=== PATIENT | female | born 1970 | race Caucasian/White ===

== ENCOUNTER → 2020-03-07 10:39 | Outpatient (BNVA) | payer OTHER, SELFPAY | PROVIDERS: Family Provider Obstetrics & Gynecology; Visit Provider Emergency Medicine | DX: Z20.828 Contact with and (suspected) exposure to other viral communicable diseases (principal) | CPT/HCPCS: 87635 ==

== ENCOUNTER → 2023-04-18 10:35 | Outpatient (BNVA) | payer OTHER, SELFPAY | PROVIDERS: Family Provider Obstetrics & Gynecology; Visit Provider Orthopaedic Surgery | DX: T14.8XXA Other injury of unspecified body region, initial encounter; X58.XXXA Exposure to other specified factors, initial encounter | CPT/HCPCS: 73060 ==

== ENCOUNTER 2023-04-21 06:40 | Outpatient (CLI) | payer OTHER, SELFPAY ==
--- NOTE | 2023-04-21 07:00 | CT_ITS ---
WS: [id number] CT LEFT SHOULDER, NONCONTRAST HISTORY: shoulder pain, fracture after fall. Technique: All CT scans at [facility] use at least one of these dose optimization techniques: automated exposure control; mA and/or kV adjustment per patient size (includes targeted exams where dose is matched to clinical indication); or iterative reconstruction. DLP: 846.43 mGy.cm COMPARISON: Radiographs 04/18/2023 and 04/16/2023 Markedly comminuted fracture involving the LEFT humeral head and neck. Intra-articular fracture at ltiple sites. The fracture extends through the humeral neck. There is impaction of the distal fractur e into the humeral head and significant subluxation inferiorly of the humeral head with respect to th e glenoid. Small joint effusion is identified. The distal fracture is displaced anteriorly. AC joint appears normal. No glenoid fracture. No rib fracture. IMPRESSION: 1. Markedly comminuted, displaced intra-articular LEFT humeral head and neck fracture. 2. Inferior subluxation of the humeral head with respect to the glenoid. 3. Small joint effusion.
== END 2023-04-21 06:41 | disposition home or self-care (01) ==
LOC: RAD 06:40
PROVIDERS: Family Provider Obstetrics & Gynecology; Visit Provider Orthopaedic Surgery
DX: S42.352A Displaced comminuted fracture of shaft of humerus, left arm, initial encounter for closed fracture (principal); S42.212A Unspecified displaced fracture of surgical neck of left humerus, initial encounter for closed fracture; W19.XXXA Unspecified fall, initial encounter
CPT/HCPCS: 73200

== ENCOUNTER 2024-04-19 12:13 | Outpatient (CLI) | payer OTHER, SELFPAY ==
--- NOTE | 2024-04-19 12:17 | US_ITS ---
WS: [id number] ULTRASOUND-GUIDED LEFT BREAST BIOPSY HISTORY: ABNORMAL MAMMO COMPARISON: 04/04/2024 mammogram and ultrasound. Procedure, risks and complications are explained to the patient. Medications are reviewed. Consent is obtained. The mass in the LEFT breast is localized with ultrasound. Spiculated irregular mass identified at 2:00, 2 cm from the nipple. Skin is cleansed with ChloraPrep and anesthetized with 1% buffered lidocaine. Small dermatome is made. Under sterile conditions mass is biopsied with a 14-gauge Achieve needle. Multiple core biopsies are performed. Material placed in formalin and sent to pathology for review. No complications encountered. Breast tissue marker (Adaptive Digital Power ultrasound enhanced ribbon): Single. Patient left the radiology suite with no complications. [place] [facility] [place] call with any concerns. US/[place] [id number] IMPRESSION: 1. Uncomplicated core needle biopsy LEFT breast mass at 2:00. 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 Greatest tumor dimension 15 mm. Please refer to the pathology report for further details. RECOMMENDATION: Follow-up with oncology and breast surgeon.
[2024-04-25 15:17] LABS: Breast Profile ER,PR,HER2,Ki-6 See Report
== END 2024-04-19 12:14 | disposition home or self-care (01) ==
LOC: RAD 12:15
PROVIDERS: Family Provider Obstetrics & Gynecology; PCP Nurse Practitioner Family; Visit Provider Nurse Practitioner Family
DX: R92.8 Other abnormal and inconclusive findings on diagnostic imaging of breast (principal); C50.412 Malignant neoplasm of upper-outer quadrant of left female breast; R92.0 Mammographic microcalcification found on diagnostic imaging of breast
CPT/HCPCS: 19083; 88305; 88361; 88374

== ENCOUNTER 2024-05-01 09:46 | Oncology outpatient (recurring) (ONCR) | payer OTHER, SELFPAY ==
[2024-05-01 11:22] LABS: Basophils # 0.1 10^3/uL (0.0-0.1); Basophils % 0.7 %; Eosinophils # 0.1 10^3/uL (0.0-0.8); Eosinophils % 1.2 %; Hematocrit 43.9 % (36-47); Lymphocytes # 1.9 10^3/uL (0.8-4.8); Lymphocytes % 27.6 %; Mean Corpuscular HGB Conc 33.7 g/dL (30-55); Mean Corpuscular Hemoglobin 28.1 pg (27-33); Mean Corpuscular Volume 83.5 fl (85-98); Mean Platelet Volume 10.3 fL (7.4-10.4); Monocytes # 0.4 10^3/uL (0.2-0.9); Monocytes % 5.5 %; Neutrophils # 4.46 10^3/uL (1.8-7.7); Neutrophils % 64.9 %; Nucleated Red Blood Cells % 0 %; Platelet Count 301 10^3/cmm (157-399); Red Blood Count 5.26 10^6/uL (3.85-5.65); Red Cell Distribution Width 12.5 % (12.1-15.1); White Blood Count 6.88 10^3/uL (3.29-11.43)
[2024-05-01 11:35] LABS: Miscellaneous Test See Scanned Lab Rpt
[2024-05-01 11:39] LABS: Erythrocyte Sedimentation Rate 12 mm/hr (0-15)
[2024-05-01 11:53] LABS: Alanine Aminotransferase 29 U/L (0-33); Albumin Level 4.7 g/dL (3.5-5.2); Alkaline Phosphatase 65 U/L (35-105); Anion Gap 15.5 (5-19); Aspartate Amino Transferase 19 U/L (0-32); Blood Urea Nitrogen 12 mg/dL (6-20); CA 15-3 22.9 U/mL (0-25); Calcium 9.8 mg/dL (8.5-10.5); Carbon Dioxide 24 mmol/L (22-29); Chloride 105 mmol/L (98-107); Follicle Stimulating Hormone 54.5 mIU/mL; Globulin 2.7 g/dL (1.3-4.6); Glomerular Filtration Rate 75.3 mL/min (90-130); Glucose 112 mg/dL (65-115); Lactate Dehydrogenase 203 U/L (135-214); Luteinizing Hormone 26.5 mIU/mL (0.5-41.7); Osmolality Calculated 291 mOsm/kg (285-295); Potassium 4.5 mmol/L (3.5-5.1); Sodium 140 mmol/L (136-145); Total Bilirubin 0.5 mg/dL (0.15-1.2); Total Protein 7.4 g/dL (6.6-8.7)
== END 2024-05-06 23:59 | disposition home or self-care (01) ==
PROVIDERS: Family Provider Obstetrics & Gynecology; PCP Nurse Practitioner Family; Visit Provider Internal Medicine
DX: C50.919 Malignant neoplasm of unspecified site of unspecified female breast (principal)
CPT/HCPCS: 36415; 80053; 82670; 83001; 83002; 83615; 85025; 85651; 86300

== ENCOUNTER 2024-05-06 07:10 | Day surgery (SDC) | payer OTHER, SELFPAY ==
[2024-05-06] VITALS (10 sets, daily range): BP systolic 101–140; BP diastolic 67–92; PULSE 91–108; RESP 14–21; TEMP 36.1–36.4; O2SAT 97–100; BMI 38.0
[2024-05-06] MEDS: sodium chloride 0.9% 1,000 ML 30 ML IV (07:37)
--- NOTE | 2024-05-06 08:34 | ANES.PREANE2 ---
Pre-Anesthetic Assessment Height/Weight: Height 1.57 m Weight 94.347 kg Temp Pulse Resp BP Pulse Ox O2 Del Method 97.3 F L 98 18 114/87 98 Room Air 05/06/24 07:26 05/06/24 07:26 05/06/24 07:26 05/06/24 07:26 05/06/24 07:26 05/06/24 07:26 Operation Date: 05/06/24 09:10 Proposed Procedures p Portacath Placement 43560, C50.412(Not Applicable) - Collins Hernandez MD Familial anesthetic complications: None Was Beta Karl taken within 24 hours: N/A Was Clonidine taken within 24 hours: N/A Last intake: Intake Last Liquid Date 05/05/24 Last Liquid Time 19:00 Last Solid Date 05/05/24 Last Solid Time 19:00 Social No alcohol and No tobacco Exam alert, oriented x 3, clear to auscultation bilaterally and regular rate & rhythm Airway Mallampati: Class III Dentition: other (missing) Metabolic Morbid Obesity Anesthetic Plan ASA status: 2 Anesthesia: MAC Risk of > 500 ml blood loss (7ml/kg in children): No Medications/Allergies Home Medications ?Medication ?Instructions ?Recorded ?Confirmed ?Last Taken ?Type norethindrone (contraceptive) 0.35 0.35 mg PO DAILY 05/01/24 05/03/24 05/05/24 20:00 History mg tablet (Magalis) Allergies Allergy/AdvReac Type Severity Reaction Status Date / Time amoxicillin Allergy hives Verified 05/06/24 07:23 Current Medications Generic Name Dose Route Start Last Admin Trade Name Elida PRN Reason Stop Dose Admin Sodium Chloride 1,000 mls @ 30 mls/hr 05/06/24 07:30 05/06/24 07:37 Sodium Chloride 0.9% IV 05/07/24 07:29 30 mls/hr .Q24H JOE Administration PFSH Anesthesia Social History Smoking and tobacco/nicotine status: never used tobacco/nicotine Second hand smoke exposure: Yes (during childhood) Data Anesthesia Cardiac Studies: No Data to Display
--- NOTE | 2024-05-06 09:45 | P.HPUD_ITS ---
Surgery/Procedure H&P Update DATE OF PROCEDURE: May 06, 2024 DATE H&P PERFORMED: 05/02/24 H&P UPDATE INFORMATION: I have reviewed H&P completed within last 30 days, I have examined patient prior to procedure, No changes to prior documentation, H&P is in [facility] EMR on date indicated and Risks and benefits of the procedure reviewed PLANNED PROCEDURE: Operation Date: 05/06/24 09:10 Proposed Procedures p Portacath Placement [id number], C50.412(Not Applicable) - Collins Hernandez MD
[2024-05-06] MEDS: clindamycin 600 MG/50 ML PREMIX IV (10:22)
--- NOTE | 2024-05-06 10:38 | SC_ITS ---
WS: [id number] C-arm FL for CVA [id number] REASON FOR EXAM: MEEK CATH FINDINGS: Chemotherapy infusion port of the right chest with right internal jugular vein infusion catheter with the tip in the distal SVC. No pneumothorax. SC/C-arm FL for CVA [id number] IMPRESSION: Right chemotherapy infusion port and catheter placement as above.
[2024-05-06] MEDS: heparin, porcine 1,000 unit/mL INJ 10 mL 10000 UNIT IRRIGATION (10:50)
[2024-05-06] MEDS: lidocaine-epi 1% 20 mL INJ INJECTION (10:50)
--- NOTE | 2024-05-06 10:57 | XR_ITS ---
WS: [id number] XR chest 1V portable [id number] REASON FOR EXAM: PORTACATH FINDINGS: Right chest chemotherapy infusion port. Right internal jugular infusion catheter with the tip in the distal SVC at the cavoatrial junction. No acute pulmonary parenchymal or pleural abnormality. XR/XR chest 1V portable [id number] IMPRESSION: Right chest chemotherapy infusion port and catheter without abnormality.
--- NOTE | 2024-05-06 11:20 | PM.OP ---
Operative Report Date of procedure: May 06, 2024 Pre-op diagnosis: HER2 positive breast cancer Post-op diagnosis: Same Post-op findings: Normal vascular anatomy of the right neck Procedure done: Insertion of right IJ Port-A-Cath Implants: Bard Port-A-Cath Specimens removed/disposition: None Surgeon: Collins Hernandez MD Sales Promotion Manager: DAYANARA OR Staff Estimated blood loss: 10 Complications: none apparent Brief History: 53-year-old female with breast cancer who presents to my office for evaluation, we have determined the patient would benefit from neoadjuvant therapy. She is here for a port. Procedure: Patient was brought into the OR, she was placed in a supine position, moderate anesthesia sedation was given. Timeout was conducted after the skin was prepped and draped in the usual sterile fashion. I then proceeded to identify the right IJ vein with ultrasound, I infiltrated local anesthesia on top of the vein. I then proceeded to cannulate the vein under direct ultrasound guidance using an 18-gauge needle, the needle tip was seen entering the vein and immediate return of blood was noted. wire advancement was unsuccessful. an dditional cannulation attempt was needed. A wire was advanced through the needle and the needle was removed. The position of the wire was verified with ultrasound and fluoroscopy. The wire was then fixed to the drapes. I then placed my attention to the chest, local anesthesia was infiltrated in the previously marked area on the chest and then a tract connecting the chest to the wire insertion site in the neck. I then proceeded to make a 3.5 cm incision in the right upper chest, the incision was deepened to subcutaneous tissue with electrocautery and electrocautery was used to create the subcutaneous pocket to house the Port-A-Cath. I then proceeded to use a hemostat to create a tunnel from the chest wound to the neck. I then proceeded to make a 0.5 cm incision at the level of the wire insertion site in the neck. Hemostasis was verified. I then placed the Port-A-Cath in the pocket and tunneled the catheter using the provided tunneler. The catheter was cut to appropriate length under fluoroscopy guidance and then flushed. I then proceeded to insert an introducer with a peel-off sheath over the wire under direct fluoroscopic guidance. I then remove the wire and the introducer leaving the peel-off sheath in place. The catheter was then advanced through the peel-off sheath and the peel-off sheath was removed leaving the catheter in place. Fluoroscopy showed evidence of Adequate catheter position. I then proceeded to access the port; the port was retrieving blood and flushing fine, I then hep-locked the catheter. Hemostasis was verified. The wound was closed in layers using #3-0 Vicryl for the subcutaneous tissue and #4 Monocryl for the skin. Dermabond was applied. At the end of the procedure all counts were correct. The patient tolerated well the procedure and was transferred to the PACU in stable condition.
--- NOTE | 2024-05-06 12:45 | ANE.PACU2 ---
Inpatient post-anesthesia follow up: Airway intact: Yes Vital signs: Temperature 97.0 F Pulse Rate 91 Respiratory Rate 17 Blood Pressure 133/90 Pulse Oximetry 99 Oxygen Delivery Me thod Room Air Oxygen Flow Rate 2 Fraction of Inspir ed Oxygen Hydration adequate: Yes Nausea and vomiting: No Pain level: 1 Mental status: Baseline
== END 2024-05-06 12:47 | disposition home or self-care (01) ==
PROVIDERS: PCP Nurse Practitioner Family; Visit Provider Surgery
PROC: (CPT 36561; principal; 2024-05-06 09:00)
DX: C50.412 Malignant neoplasm of upper-outer quadrant of left female breast (principal); E66.01 Morbid (severe) obesity due to excess calories; Z68.38 Body mass index [BMI] 38.0-38.9, adult; Z88.0 Allergy status to penicillin; Z17.1 Estrogen receptor negative status [ER-]
CPT/HCPCS: 36561; 71045; 76000; 77001; C1788; J1644; J2250; J2704; J3490; J7030; J9999

== ENCOUNTER 2024-06-05 08:00 | Oncology outpatient (recurring) (ONCR) | payer OTHER, SELFPAY ==
--- NOTE | 2024-05-09 10:00 | USCV_ITS ---
Tanya Richter Age: 53 Gender: F : 1970 Exam Date: 05/09/2024 09:33 Ordering Phys: Yousif Enriquez MD Technologist: Exam [place] [facility] [place] Indication: pre high risk meds BP: 112 / 78 HR: 88 Rhythm: Sinus Technical Quality: Adequate MEASUREMENTS (Male / Female) Normal Values 2D ECHO LV Diastolic Diameter PLAX 3.5 cm 4.2 - 5.9 / 3.9 - 5.3 cm IVS Diastolic Thickness 1.1 cm 0.6 - 1.0 / 0.6 - 0.9 cm IVS Systolic Thickness 1.5 cm LVPW Diastolic Thickness 1.3 cm 0.6 - 1.0 / 0.6 - 0.9 cm LVPW Systolic Thickness 1.3 cm LVOT Diameter 2.0 cm LV Ejection Fraction 2D Teich 71.3 % LV Ejection Fraction MOD 4C 55.2 % LV Ejection Fraction MOD 2C 72.9 % LV Ejection Fraction 2C AL 73.3 % LA Diameter 3.2 cm RA Systolic Volume 4C AL 19.5 ml RA Systolic Volume 4C MOD 18.3 ml LA Sys Volume AL 26.6 cm cubed LA Sys Volume Index AL 12.8 cm cubed/m squared Aorta at Sinotubular Diameter 2.7 cm IVC Diameter 2.0 cm M-MODE LA Ao Ratio MM 1.1 AV Cusp Separation MM 2.3 cm DOPPLER AV Peak Velocity 118.0 cm/s LVOT Peak Velocity 91.0 cm/s AV Area Cont Eq vti 3.1 cm squared AV Area Cont Eq pk 2.5 cm squared MV Peak Velocity 95.0 cm/s MV Area PHT 7.4 cm squared Mitral E to A Ratio 0.8 TV Peak Velocity 153.0 cm/s TR Peak Velocity 157.0 cm/s TR Peak Gradient 9.9 mmHg TV Peak E Velocity 95.0 cm/s PV Peak Velocity 91.0 cm/s FINDINGS Left Ventricle Normal left ventricular size, systolic function and wall thickness, with no regional wall motion abnormalities. Left ventricular ejection fraction is estimated at 65 %. Grade I/IV diastolic dysfunction (abnormal relaxation filling pattern), normal to mildly elevated filling pressures. Right Ventricle The right ventricle is normal in size and function. Right Atrium The right atrium is normal in size. Left Atrium The left atrium is normal in size. Mitral Valve Moderately thickened mitral valve. Moderate mitral annular calcification. No mitral valve stenosis. Mild mitral valve regurgitation. Aortic Valve Moderate aortic valve calcification. No aortic valve stenosis. Trace aortic valve regurgitation. Tricuspid Valve Structurally normal tricuspid valve without significant stenosis or regurgitation. Pulmonary artery systolic pressure is normal. Pulmonic Valve Structurally normal pulmonic valve without significant stenosis. There is no pulmonic regurgitation. Pericardium Normal pericardium without effusion. Aorta Normal ascending aorta dimension. IVC The inferior vena cava appears normal. CONCLUSIONS Normal left ventricular size, systolic function and wall thickness, with no regional wall motion abnormalities. Left ventricular ejection fraction is estimated at 65 %. Grade I/IV diastolic dysfunction (abnormal relaxation filling pattern), normal to mildly elevated filling pressures. Moderately thickened mitral valve. Moderate mitral annular calcification. No mitral valve stenosis. Mild mitral valve regurgitation. Moderate aortic valve calcification. No aortic valve stenosis. Trace aortic valve regurgitation. There is no pericardial effusion. Right atrial pressure is around 5 mm of mercury. Nikky Nix MD (Electronically Signed) Final Date: 23 May 2024 12:40 S
--- NOTE | 2024-05-24 08:00 | PETR_ITS ---
PROCEDURE INFORMATION: Exam: PET/CT Skull Base to Mid-thigh Exam date and time: 05/24/2024 10:16 AM Age: 53 years old Clinical indication: Condition or disease; Primary cancer: Breast cancer; Prior surgery; Surgery date: 6+ months; Surgery type: Port LABS AND CLINICAL REPORTS: Glucose: 101 mg/dl Treatment strategy for malignancy (PET staging): Initial Staging (PI) TECHNIQUE: Imaging protocol: Following at least four-hour fasting and following the injection of radiopharmaceutical, low dose CT images were obtained. Then, PET images were obtained. Attenuation corrected images were constructed using the CT scan. Fused images of PET and CT were reviewed. The standardized uptake values (SUV) reported below are maximum values within a region of interest, expressed in gm/ml. Exam includes orbital meatal line to mid-thigh. SUV normalization method: BodyWeight Radiopharmaceutical: 11.1 mCi F-18 FDG (Fluorodeoxyglucose), IV. Time of imaging post radiopharmaceutical administration: 45 minutes Injection site: CHEST PORT COMPARISON: 1. CR XR chest 1V portable [id number] 05/06/2024 10:32 [place] 2[place] [id number] 04/19/2024 12:48 PM 3. US breast LT limited* [id number] 04/04/2024 10:17 AM FINDINGS: Tubes, catheters and devices: Access right chest port terminates at the right atrium. Brain: Visualized brain has normal physiologic uptake. Pharynx: No abnormal uptake. Larynx: No abnormal uptake. Lungs, pleura and trachea: No abnormal uptake. Mild dependent atelectasis. Heart: Normal physiologic uptake. Mediastinal space: No abnormal uptake. Liver: No abnormal uptake. Gallbladder and biliary ducts: No abnormal uptake. Pancreas: No abnormal uptake. Spleen: No abnormal uptake. Adrenal glands: No abnormal uptake. Kidneys and ureters: Normal physiologic uptake. Stomach and bowel: No abnormal uptake. Reproductive: 1.3 cm long linear hyperdensity along the uterine body endometrium. Otherwise unremarkable as visualized. Vasculature: No abnormal uptake. Lymph nodes: Multiple FDG avid left axillary lymph nodes, index retropectoral node measures 7 mm in the short axis on axial image 254 and shows SUV max 13.4. Skeleton: Chronic fracture deformity of the proximal left humerus with mild periarticular uptake that is likely inflammatory. Soft tissues: FDG avid left outer breast mass with central biopsy marking clip measuring approximately 3 cm on axial image 216 shows SUV max 15.5. Asymmetric left breast dermal thickening with associated low-level FDG uptake. Tiny fat containing umbilical hernia. METRICS: Mediastinal blood pool: SUV mean 2.3 Liver uptake: SUV mean 2.9 PET/PET skull to thigh INIT [id number] IMPRESSION: 1. FDG avid left breast mass compatible with malignancy. 2. Mildly metabolic left breast dermal thickening could be inflammatory or malignant. 3. Metastatic left axillary lymphadenopathy. 4. 1.3 cm long linear hyperdensity along the uterine body endometrium. Although this could represent calcification, consideration for retained IUD fragment. 5. Chronic fracture deformity of the proximal left humerus with mild periarticular uptake that is likely inflammatory.
[2024-06-05 08:11] LABS: Basophils % 0.1 %; Hematocrit 43.9 % (36-47); Lymphocytes # 1.8 10^3/uL (0.8-4.8); Lymphocytes % 11.7 %; Mean Corpuscular HGB Conc 33.9 g/dL (30-55); Mean Corpuscular Hemoglobin 28.8 pg (27-33); Mean Corpuscular Volume 84.9 fl (85-98); Mean Platelet Volume 10.8 fL (7.4-10.4); Monocytes # 0.3 10^3/uL (0.2-0.9); Monocytes % 2.1 %; Neutrophils # 13.46 10^3/uL (1.8-7.7); Neutrophils % 85.7 %; Nucleated Red Blood Cells % 0 %; Platelet Count 272 10^3/cmm (157-399); Red Blood Count 5.17 10^6/uL (3.85-5.65); Red Cell Distribution Width 12.8 % (12.1-15.1); White Blood Count 15.72 10^3/uL (3.29-11.43)
[2024-06-05 08:36] LABS: Alanine Aminotransferase 471 U/L (0-33); Albumin Level 4.4 g/dL (3.5-5.2); Alkaline Phosphatase 81 U/L (35-105); Aspartate Amino Transferase 121 U/L (0-32); Blood Urea Nitrogen 18 mg/dL (6-20); Calcium 9.7 mg/dL (8.5-10.5); Carbon Dioxide 22 mmol/L (22-29); Chloride 104 mmol/L (98-107); Creatinine Clr Calc Pharmacy 100.4368; Globulin 3.2 g/dL (1.3-4.6); Glomerular Filtration Rate 87.9 mL/min (90-130); Glucose 155 mg/dL (65-115); Osmolality Calculated 291 mOsm/kg (285-295); Sodium 138 mmol/L (136-145); Total Bilirubin 0.7 mg/dL (0.15-1.2); Total Protein 7.6 g/dL (6.6-8.7)
[2024-06-05 11:21] LABS: INR 1.05 (0.8-1.2)
[2024-06-05 11:51] LABS: Hepatitis A Antibody IgM Non-Reactive (Nonreactive); Hepatitis B Core AB, Total Non-Reactive (Nonreactive); Hepatitis B Surface AB < 3.5 (11.5-1000); Hepatitis B Surface Antigen Non-Reactive (Nonreactive); Hepatitis C Virus Antibody Non-Reactive (Nonreactive)
== END 2024-06-05 23:59 | disposition home or self-care (01) ==
PROVIDERS: Nurse Practitioner Family; Family Provider Obstetrics & Gynecology; PCP Nurse Practitioner Family; Visit Provider Internal Medicine
DX: Z53.9 Procedure and treatment not carried out, unspecified reason (principal); C50.412 Malignant neoplasm of upper-outer quadrant of left female breast; Z17.1 Estrogen receptor negative status [ER-]; R74.8 Abnormal levels of other serum enzymes
CPT/HCPCS: 78815; 80053; 85025; 85610; 86705; 86706; 86709; 86803; 87340; 93306; A9552

== ENCOUNTER 2024-06-11 07:16 | Oncology outpatient (recurring) (ONCR) | payer OTHER, SELFPAY ==
[2024-06-11 07:32] LABS: Basophils % 0.1 %; Hematocrit 43.5 % (36-47); Lymphocytes # 1.9 10^3/uL (0.8-4.8); Lymphocytes % 11.2 %; Mean Corpuscular Hemoglobin 28.5 pg (27-33); Mean Corpuscular Volume 83.7 fl (85-98); Mean Platelet Volume 10.5 fL (7.4-10.4); Monocytes # 0.5 10^3/uL (0.2-0.9); Monocytes % 2.9 %; Neutrophils # 14.57 10^3/uL (1.8-7.7); Neutrophils % 85.4 %; Nucleated Red Blood Cells % 0 %; Platelet Count 269 10^3/cmm (157-399); Red Cell Distribution Width 12.7 % (12.1-15.1); White Blood Count 17.05 10^3/uL (3.29-11.43)
[2024-06-11 07:53] LABS: Alanine Aminotransferase 132 U/L (0-33); Albumin Level 4.2 g/dL (3.5-5.2); Alkaline Phosphatase 74 U/L (35-105); Anion Gap 18.1 (5-19); Aspartate Amino Transferase 28 U/L (0-32); Blood Urea Nitrogen 14 mg/dL (6-20); Calcium 9.6 mg/dL (8.5-10.5); Carbon Dioxide 20 mmol/L (22-29); Chloride 102 mmol/L (98-107); Globulin 3.1 g/dL (1.3-4.6); Glomerular Filtration Rate 75.3 mL/min (90-130); Glucose 167 mg/dL (65-115); Osmolality Calculated 286 mOsm/kg (285-295); Potassium 4.1 mmol/L (3.5-5.1); Sodium 136 mmol/L (136-145); Total Bilirubin 0.6 mg/dL (0.15-1.2); Total Protein 7.3 g/dL (6.6-8.7)
[2024-06-11 08:36] VITALS: BP 132/85; PULSE 92; TEMP 37.3
[2024-06-11 09:08] VITALS: BMI 37.7
[2024-06-11] MEDS: sodium chloride 0.9% 250 ML 75 ML IV (09:21)
[2024-06-11] MEDS: aprepitant 130 mg/18 ml SDV IVP (09:22)
[2024-06-11] MEDS: OLANZapine 5 mg TABLET PO (09:22)
[2024-06-11] MEDS: dexamethasone 4 mg/mL INJ 12 MG IVP (09:27)
[2024-06-11] MEDS: diphenhydrAMINE 50 mg/mL SDV 1mL 25 MG IVP (09:30)
[2024-06-11] MEDS: famotidine 20 mg/2 mL INJ IVP (09:32)
[2024-06-11] MEDS: palonosetron 0.25 mg/5 mL SDV IVP (09:35)
[2024-06-11] MEDS: pertuzumab 840 MG in sodium chloride 0.9% 250 ML 278 MG IV (10:29)
[2024-06-11] MEDS: TRASTUZUMAB ANNS IV (11:58)
[2024-06-11] MEDS: SODIUM CHLORIDE 0.9% IV ×2 (11:58→15:27)
[2024-06-11] MEDS: [UNRECOGNIZED DRUG - REMARK] 264.6 MG IV (14:07)
[2024-06-11] MEDS: CARBOPLATIN IV (15:27)
[2024-06-11 16:39] VITALS: BP 117/74; PULSE 86; RESP 16; TEMP 36.7; O2SAT 98
[2024-06-11] MEDS: pegfilgrastim 6 mg/0.6 mL Kit (onpro) SUBCUT (16:40)
== END 2024-06-11 23:59 | disposition home or self-care (01) ==
PROVIDERS: Nurse Practitioner Family; Family Provider Obstetrics & Gynecology; PCP Nurse Practitioner Family; Visit Provider Internal Medicine
DX: Z51.11 Encounter for antineoplastic chemotherapy (principal); Z51.12 Encounter for antineoplastic immunotherapy; C50.412 Malignant neoplasm of upper-outer quadrant of left female breast; Z17.1 Estrogen receptor negative status [ER-]; Z79.899 Other long term (current) drug therapy
CPT/HCPCS: 80053; 85025; 96375; 96377; 96413; 96415; 96417; J0185; J1100; J1200; J2469; J2506; J3490; J7040; J7050; J9045; J9171; J9306; J9999; Q5117

== ENCOUNTER 2024-07-02 08:30 | Oncology outpatient (recurring) (ONCR) | payer OTHER, SELFPAY ==
[2024-06-18 09:17] LABS: Alanine Aminotransferase 101 U/L (0-33); Albumin Level 3.8 g/dL (3.5-5.2); Alkaline Phosphatase 83 U/L (35-105); Anion Gap 15.2 (5-19); Aspartate Amino Transferase 25 U/L (0-32); Blood Urea Nitrogen 20 mg/dL (6-20); Calcium 9.2 mg/dL (8.5-10.5); Carbon Dioxide 22 mmol/L (22-29); Chloride 103 mmol/L (98-107); Creatinine Clr Calc Pharmacy 99.2756; Globulin 2.6 g/dL (1.3-4.6); Glomerular Filtration Rate 87.9 mL/min (90-130); Glucose 112 mg/dL (65-115); Osmolality Calculated 285 mOsm/kg (285-295); Potassium 4.2 mmol/L (3.5-5.1); Sodium 136 mmol/L (136-145); Total Bilirubin 0.6 mg/dL (0.15-1.2); Total Protein 6.4 g/dL (6.6-8.7)
[2024-06-18 09:21] LABS: Basophils % 0.3 %; Eosinophils # 0.1 10^3/uL (0.0-0.8); Eosinophils % 0.7 %; Lymphocytes # 2.2 10^3/uL (0.8-4.8); Lymphocytes % 32.8 %; Mean Corpuscular HGB Conc 33.5 g/dL (30-55); Mean Corpuscular Hemoglobin 28.5 pg (27-33); Mean Platelet Volume 12.8 fL (7.4-10.4); Monocytes # 1.6 10^3/uL (0.2-0.9); Monocytes % 24.1 %; Neutrophils # 2.78 10^3/uL (1.8-7.7); Neutrophils % 41.2 %; Nucleated Red Blood Cells % 0 %; Platelet Count 120 10^3/cmm (157-399); Red Blood Count 5.41 10^6/uL (3.85-5.65); Red Cell Distribution Width 12.7 % (12.1-15.1); White Blood Count 6.76 10^3/uL (3.29-11.43)
[2024-06-18 09:52] LABS: Slide Review Slide Review Perform
[2024-06-18] MEDS: sodium chloride 0.9% 1,000 ML 999 ML IV (10:38)
[2024-06-18 13:01] LABS: C.Diff PCR (Lab) NEGATIVE (Negative)
[2024-06-20] MEDS: sodium chloride 0.9% 1,000 ML 999 ML IV (13:10)
[2024-06-20 13:23] LABS: Basophils # 0.1 10^3/uL (0.0-0.1); Basophils % 0.2 %; Hematocrit 46.8 % (36-47); Lymphocytes # 2.4 10^3/uL (0.8-4.8); Lymphocytes % 9.5 %; Mean Corpuscular Hemoglobin 28.6 pg (27-33); Mean Corpuscular Volume 84.3 fl (85-98); Mean Platelet Volume 11.4 fL (7.4-10.4); Monocytes # 2.2 10^3/uL (0.2-0.9); Monocytes % 8.7 %; Neutrophils # 19.04 10^3/uL (1.8-7.7); Nucleated Red Blood Cells % 0 %; Platelet Count 179 10^3/cmm (157-399); Red Blood Count 5.55 10^6/uL (3.85-5.65); Red Cell Distribution Width 12.8 % (12.1-15.1); White Blood Count 24.73 10^3/uL (3.29-11.43)
[2024-06-20 13:42] LABS: Alanine Aminotransferase 73 U/L (0-33); Albumin Level 4.1 g/dL (3.5-5.2); Alkaline Phosphatase 141 U/L (35-105); Anion Gap 16.1 (5-19); Aspartate Amino Transferase 24 U/L (0-32); Blood Urea Nitrogen 18 mg/dL (6-20); Calcium 9.1 mg/dL (8.5-10.5); Carbon Dioxide 22 mmol/L (22-29); Chloride 103 mmol/L (98-107); Creatinine Clr Calc Pharmacy 86.8662; Globulin 2.4 g/dL (1.3-4.6); Glomerular Filtration Rate 75.3 mL/min (90-130); Glucose 150 mg/dL (65-115); Osmolality Calculated 289 mOsm/kg (285-295); Potassium 4.1 mmol/L (3.5-5.1); Sodium 137 mmol/L (136-145); Total Bilirubin 0.4 mg/dL (0.15-1.2); Total Protein 6.5 g/dL (6.6-8.7)
[2024-06-20 13:46] LABS: Slide Review Slide Review Perform
[2024-06-24 12:25] LABS: Basophils # 0.1 10^3/uL (0.0-0.1); Basophils % 0.3 %; Hematocrit 39.3 % (36-47); Lymphocytes # 2.4 10^3/uL (0.8-4.8); Lymphocytes % 7.5 %; Mean Corpuscular HGB Conc 33.6 g/dL (30-55); Mean Corpuscular Hemoglobin 28.6 pg (27-33); Mean Corpuscular Volume 85.2 fl (85-98); Mean Platelet Volume 10.4 fL (7.4-10.4); Monocytes # 1.3 10^3/uL (0.2-0.9); Neutrophils # 27.09 10^3/uL (1.8-7.7); Neutrophils % 85.8 %; Nucleated Red Blood Cells % 0 %; Platelet Count 152 10^3/cmm (157-399); Red Blood Count 4.61 10^6/uL (3.85-5.65); Red Cell Distribution Width 13.2 % (12.1-15.1)
[2024-06-24 12:29] LABS: White Blood Count 31.59 10^3/uL (3.29-11.43)
[2024-06-24 12:35] LABS: Alanine Aminotransferase 58 U/L (0-33); Albumin Level 3.8 g/dL (3.5-5.2); Alkaline Phosphatase 137 U/L (35-105); Anion Gap 14.9 (5-19); Aspartate Amino Transferase 22 U/L (0-32); Blood Urea Nitrogen 16 mg/dL (6-20); Calcium 8.7 mg/dL (8.5-10.5); Carbon Dioxide 25 mmol/L (22-29); Chloride 103 mmol/L (98-107); Creatinine Clr Calc Pharmacy 99.5451; Globulin 2.2 g/dL (1.3-4.6); Glomerular Filtration Rate 87.9 mL/min (90-130); Glucose 131 mg/dL (65-115); Osmolality Calculated 291 mOsm/kg (285-295); Potassium 3.9 mmol/L (3.5-5.1); Sodium 139 mmol/L (136-145); Total Bilirubin 0.4 mg/dL (0.15-1.2)
[2024-07-02 08:38] LABS: Basophils # 0.1 10^3/uL (0.0-0.1); Basophils % 0.5 %; Eosinophils # 0.2 10^3/uL (0.0-0.8); Eosinophils % 1.3 %; Hematocrit 39.8 % (36-47); Lymphocytes % 25.8 %; Mean Corpuscular HGB Conc 32.2 g/dL (30-55); Mean Corpuscular Hemoglobin 28.4 pg (27-33); Mean Corpuscular Volume 88.4 fl (85-98); Mean Platelet Volume 9.2 fL (7.4-10.4); Monocytes # 1.2 10^3/uL (0.2-0.9); Monocytes % 10.1 %; Neutrophils # 7.04 10^3/uL (1.8-7.7); Neutrophils % 61.5 %; Nucleated Red Blood Cells % 0 %; Platelet Count 232 10^3/cmm (157-399); Red Cell Distribution Width 14.5 % (12.1-15.1); White Blood Count 11.45 10^3/uL (3.29-11.43)
[2024-07-02 08:56] LABS: Alanine Aminotransferase 58 U/L (0-33); Albumin Level 3.6 g/dL (3.5-5.2); Alkaline Phosphatase 88 U/L (35-105); Anion Gap 11.7 (5-19); Aspartate Amino Transferase 26 U/L (0-32); Blood Urea Nitrogen 16 mg/dL (6-20); Calcium 8.8 mg/dL (8.5-10.5); Carbon Dioxide 27 mmol/L (22-29); Chloride 105 mmol/L (98-107); Globulin 2.2 g/dL (1.3-4.6); Glomerular Filtration Rate 75.3 mL/min (90-130); Glucose 110 mg/dL (65-115); Osmolality Calculated 292 mOsm/kg (285-295); Potassium 3.7 mmol/L (3.5-5.1); Sodium 140 mmol/L (136-145); Total Bilirubin 0.4 mg/dL (0.15-1.2); Total Protein 5.8 g/dL (6.6-8.7)
[2024-07-02] MEDS: sodium chloride 0.9% 250 ML 75 ML IV (10:48)
[2024-07-02] MEDS: OLANZapine 5 mg TABLET PO (10:49)
[2024-07-02] MEDS: aprepitant 130 mg/18 ml SDV IVP (10:49)
[2024-07-02] MEDS: dexamethasone 4 mg/mL INJ 12 MG IVP (10:57)
[2024-07-02] MEDS: diphenhydrAMINE 50 mg/mL SDV 1mL 25 MG IVP (11:00)
[2024-07-02] MEDS: famotidine 20 mg/2 mL INJ IVP (11:03)
[2024-07-02] MEDS: palonosetron 0.25 mg/5 mL SDV IVP (11:06)
[2024-07-02] MEDS: pertuzumab 420 MG in sodium chloride 0.9% 250 ML 264 MG IV (11:18)
[2024-07-02] MEDS: SODIUM CHLORIDE 0.9% IV (12:37)
[2024-07-02] MEDS: TRASTUZUMAB ANNS IV (12:37)
[2024-07-02] MEDS: [UNRECOGNIZED DRUG - REMARK] 265 MG IV (13:53)
[2024-07-02] MEDS: pegfilgrastim 6 mg/0.6 mL Kit (onpro) SUBCUT (16:23)
[2024-07-02 16:33] VITALS: BP 115/77; PULSE 95; RESP 17; TEMP 36.2; O2SAT 96
== END 2024-07-02 23:59 | disposition home or self-care (01) ==
PROVIDERS: Internal Medicine Medical Oncology; Nurse Practitioner Family; Family Provider Obstetrics & Gynecology; PCP Nurse Practitioner Family; Visit Provider Internal Medicine
DX: Z53.9 Procedure and treatment not carried out, unspecified reason; Z51.11 Encounter for antineoplastic chemotherapy; Z51.12 Encounter for antineoplastic immunotherapy; C50.412 Malignant neoplasm of upper-outer quadrant of left female breast; Z17.1 Estrogen receptor negative status [ER-]; Z79.52 Long term (current) use of systemic steroids; Z79.899 Other long term (current) drug therapy
CPT/HCPCS: 36591; 80053; 85025; 87045; 87177; 87209; 87427; 87449; 87493; 96360; 96365; 96375; 96377; 96413; 96417; J0185; J1100; J1200; J2469; J2506; J3490; J7030; J7040; J7050; J9045; J9171; J9306; J9999; Q5117

== ENCOUNTER 2024-07-25 07:30 | Oncology outpatient (recurring) (ONCR) | payer OTHER, SELFPAY ==
[2024-07-08 12:27] LABS: Hematocrit 40.4 % (36-47); Mean Corpuscular HGB Conc 32.7 g/dL (30-55); Mean Corpuscular Hemoglobin 28.4 pg (27-33); Mean Corpuscular Volume 86.9 fl (85-98); Mean Platelet Volume 10.8 fL (7.4-10.4); Platelet Count 97 10^3/cmm (157-399); Red Blood Count 4.65 10^6/uL (3.85-5.65); Red Cell Distribution Width 14.3 % (12.1-15.1); White Blood Count 3.48 10^3/uL (3.29-11.43)
[2024-07-08 12:41] LABS: Alanine Aminotransferase 55 U/L (0-33); Albumin Level 3.9 g/dL (3.5-5.2); Alkaline Phosphatase 101 U/L (35-105); Anion Gap 14.1 (5-19); Aspartate Amino Transferase 23 U/L (0-32); Blood Urea Nitrogen 13 mg/dL (6-20); Calcium 8.6 mg/dL (8.5-10.5); Carbon Dioxide 25 mmol/L (22-29); Chloride 101 mmol/L (98-107); Creatinine Clr Calc Pharmacy 114.8789; Globulin 2.2 g/dL (1.3-4.6); Glucose 120 mg/dL (65-115); Osmolality Calculated 283 mOsm/kg (285-295); Potassium 4.1 mmol/L (3.5-5.1); Sodium 136 mmol/L (136-145); Total Bilirubin 0.6 mg/dL (0.15-1.2); Total Protein 6.1 g/dL (6.6-8.7)
[2024-07-08 12:54] LABS: Slide Review Slide Review Perform
[2024-07-08 12:55] LABS: Absolute Neutrophil 1.8 10^3/cmm (1.4-6.5); Absolute Segmented Neutrophil 1.5 10/cmm (1.6-7.1); Band Neutrophils Absolute 0.3 10^3/cmm (0.0-1.2); Eosinophils 0 %; Giant Platelets Trace; Lymphocytes 36 %; Lymphocytes Absolute 1.4 10^3/cmm (1.2-3.4); Monocytes Absolute 0.2 10^3/cmm (0.1-0.6); Platelet Estimate Decreased (Normal); Segmented Neutrophils 44 %; Total Cells Counted 100 (0-100)
[2024-07-25 07:45] LABS: Basophils % 0.1 %; Hematocrit 37.4 % (36-47); Lymphocytes # 2.8 10^3/uL (0.8-4.8); Lymphocytes % 19.3 %; Mean Corpuscular HGB Conc 34.2 g/dL (30-55); Mean Corpuscular Hemoglobin 29.6 pg (27-33); Mean Corpuscular Volume 86.6 fl (85-98); Mean Platelet Volume 9.5 fL (7.4-10.4); Monocytes # 0.6 10^3/uL (0.2-0.9); Monocytes % 4.1 %; Neutrophils # 11.18 10^3/uL (1.8-7.7); Nucleated Red Blood Cells % 0 %; Platelet Count 279 10^3/cmm (157-399); Red Blood Count 4.32 10^6/uL (3.85-5.65); Red Cell Distribution Width 16.1 % (12.1-15.1); White Blood Count 14.71 10^3/uL (3.29-11.43)
[2024-07-25 08:00] LABS: Alanine Aminotransferase 29 U/L (0-33); Albumin Level 4.2 g/dL (3.5-5.2); Alkaline Phosphatase 88 U/L (35-105); Anion Gap 15.2 (5-19); Aspartate Amino Transferase 21 U/L (0-32); Blood Urea Nitrogen 13 mg/dL (6-20); Calcium 9.8 mg/dL (8.5-10.5); Carbon Dioxide 23 mmol/L (22-29); Chloride 106 mmol/L (98-107); Creatinine Clr Calc Pharmacy 98.4677; Globulin 2.7 g/dL (1.3-4.6); Glomerular Filtration Rate 87.9 mL/min (90-130); Glucose 170 mg/dL (65-115); Osmolality Calculated 294 mOsm/kg (285-295); Potassium 4.2 mmol/L (3.5-5.1); Sodium 140 mmol/L (136-145); Total Bilirubin 0.5 mg/dL (0.15-1.2); Total Protein 6.9 g/dL (6.6-8.7)
[2024-07-25] MEDS: sodium chloride 0.9% 250 ML 75 ML IV (10:50)
[2024-07-25] MEDS: OLANZapine 5 mg TABLET PO (10:53)
[2024-07-25] MEDS: aprepitant 130 mg/18 ml SDV IVP (10:55)
[2024-07-25] MEDS: diphenhydrAMINE 50 mg/mL SDV 1mL 25 MG IVP (11:02)
[2024-07-25] MEDS: palonosetron 0.25 mg/5 mL SDV IVP (11:05)
[2024-07-25] MEDS: famotidine 20 mg/2 mL INJ IVP (11:09)
[2024-07-25] MEDS: dexamethasone 4 mg/mL INJ 12 MG IVP (11:11)
[2024-07-25] MEDS: pertuzumab 420 MG in sodium chloride 0.9% 250 ML 264 MG IV (11:57)
[2024-07-25] MEDS: TRASTUZUMAB ANNS IV (13:17)
[2024-07-25] MEDS: SODIUM CHLORIDE 0.9% IV (13:17)
[2024-07-25] MEDS: DOCEtaxeL 140 MG in sodium chloride 0.9%(non-DEHP) 250 ML 264 MG IV (14:24)
[2024-07-25] MEDS: pegfilgrastim 6 mg/0.6 mL Kit (onpro) SUBCUT (16:29)
== END 2024-07-25 23:59 | disposition home or self-care (01) ==
PROVIDERS: Internal Medicine Medical Oncology; Family Provider Obstetrics & Gynecology; PCP Nurse Practitioner Family; Visit Provider Internal Medicine
DX: Z53.9 Procedure and treatment not carried out, unspecified reason; Z51.11 Encounter for antineoplastic chemotherapy; Z51.12 Encounter for antineoplastic immunotherapy; C50.412 Malignant neoplasm of upper-outer quadrant of left female breast; Z17.1 Estrogen receptor negative status [ER-]; Z79.52 Long term (current) use of systemic steroids; Z79.899 Other long term (current) drug therapy
CPT/HCPCS: 36591; 80053; 85007; 85025; 96375; 96377; 96413; 96417; J0185; J1100; J1200; J2469; J2506; J3490; J7040; J7050; J9045; J9171; J9306; J9999; Q5117

== ENCOUNTER 2024-08-01 08:19 | Oncology outpatient (recurring) (ONCR) | payer OTHER, SELFPAY ==
[2024-08-01 09:00] LABS: Hematocrit 36.2 % (36-47); Mean Corpuscular HGB Conc 33.4 g/dL (30-55); Mean Corpuscular Hemoglobin 29.5 pg (27-33); Mean Corpuscular Volume 88.3 fl (85-98); Mean Platelet Volume 10.5 fL (7.4-10.4); Platelet Count 156 10^3/cmm (157-399); Red Cell Distribution Width 15.5 % (12.1-15.1); White Blood Count 4.51 10^3/uL (3.29-11.43)
[2024-08-01 09:18] LABS: Alanine Aminotransferase 38 U/L (0-33); Albumin Level 3.9 g/dL (3.5-5.2); Alkaline Phosphatase 90 U/L (35-105); Anion Gap 15.1 (5-19); Aspartate Amino Transferase 22 U/L (0-32); Blood Urea Nitrogen 12 mg/dL (6-20); Calcium 9.5 mg/dL (8.5-10.5); Carbon Dioxide 25 mmol/L (22-29); Chloride 100 mmol/L (98-107); Globulin 2.3 g/dL (1.3-4.6); Glomerular Filtration Rate 87.9 mL/min (90-130); Glucose 111 mg/dL (65-115); Lactate Dehydrogenase 238 U/L (135-214); Osmolality Calculated 282 mOsm/kg (285-295); Potassium 4.1 mmol/L (3.5-5.1); Sodium 136 mmol/L (136-145); Total Bilirubin 0.5 mg/dL (0.15-1.2); Total Protein 6.2 g/dL (6.6-8.7)
[2024-08-01 10:14] LABS: Absolute Segmented Neutrophil 0.8 10/cmm (1.6-7.1); Band Neutrophils Absolute 0.4 10^3/cmm (0.0-1.2); Eosinophils 0 %; Lymphocytes 46 %; Lymphocytes Absolute 2.8 10^3/cmm (1.2-3.4); Monocytes Absolute 0.2 10^3/cmm (0.1-0.6); Segmented Neutrophils 18 %; Slide Review Slide Review Perform; Total Cells Counted 100 (0-100)
[2024-08-01 10:15] LABS: Absolute Neutrophil 1.2 10^3/cmm (1.4-6.5); Platelet Estimate Decreased (Normal)
== END 2024-08-05 23:59 | disposition home or self-care (01) ==
PROVIDERS: Family Provider Obstetrics & Gynecology; PCP Nurse Practitioner Family; Visit Provider Internal Medicine
DX: C50.412 Malignant neoplasm of upper-outer quadrant of left female breast (principal); Z17.1 Estrogen receptor negative status [ER-]
CPT/HCPCS: 36591; 80053; 83615; 85007; 85025; 96523

== ENCOUNTER → 2024-08-13 08:52 | Outpatient (BNVA) | payer OTHER, SELFPAY | PROVIDERS: PCP Nurse Practitioner Family; Referring Provider Internal Medicine; Visit Provider Internal Medicine | DX: R31.9 Hematuria, unspecified (principal); C50.412 Malignant neoplasm of upper-outer quadrant of left female breast; Z17.1 Estrogen receptor negative status [ER-] | CPT/HCPCS: 81000; 87086 ==

== ENCOUNTER 2024-08-15 07:30 | Oncology outpatient (recurring) (ONCR) | payer OTHER, SELFPAY ==
--- NOTE | 2024-08-12 06:30 | USCV_ITS ---
Tanya Richter Age: 53 Gender: F : 1970 Exam Date: 08/12/2024 06:39 Ordering Phys: Yousif Enriquez MD Technologist: Exam Location: [facility] [place] Indication: pre op surg BP: 120 / 75 HR: 95 Rhythm: Sinus Technical Quality: Adequate MEASUREMENTS (Male / Female) Normal Values 2D ECHO LV Diastolic Diameter PLAX 3.4 cm 4.2 - 5.9 / 3.9 - 5.3 cm IVS Diastolic Thickness 1.0 cm 0.6 - 1.0 / 0.6 - 0.9 cm IVS Systolic Thickness 1.4 cm LVPW Diastolic Thickness 1.0 cm 0.6 - 1.0 / 0.6 - 0.9 cm LVPW Systolic Thickness 1.4 cm LVOT Diameter 2.1 cm LV Ejection Fraction 2D Teich 66.1 % LV Ejection Fraction MOD 4C 59.3 % LV Ejection Fraction MOD 2C 68.8 % LV Ejection Fraction 2C AL 68.1 % LA Diameter 3.6 cm RA Systolic Volume 4C AL 15.5 ml RA Systolic Volume 4C MOD 15.2 ml LA Sys Volume AL 41.5 cm cubed LA Sys Volume Index AL 20.8 cm cubed/m squared Aorta at Sinotubular Diameter 2.8 cm IVC Diameter 1.4 cm M-MODE LA Ao Ratio MM 1.3 AV Cusp Separation MM 2.4 cm DOPPLER AV Peak Velocity 128.0 cm/s LVOT Peak Velocity 109.0 cm/s AV Area Cont Eq vti 2.6 cm squared AV Area Cont Eq pk 2.8 cm squared MV Peak Velocity 83.0 cm/s MV Area PHT 5.5 cm squared Mitral E to A Ratio 1.2 TR Peak Velocity 145.0 cm/s TR Peak Gradient 8.4 mmHg TV Peak E Velocity 115.0 cm/s PV Peak Velocity 124.0 cm/s FINDINGS Left Ventricle Normal left ventricular size and systolic function, EF 68%. No regional wall motion abnormalities. Right Ventricle The right ventricle is normal in size and function. Right Atrium The right atrium is normal in size. Left Atrium The left atrium is normal in size. Mitral Valve Trace mitral valve regurgitation. Aortic Valve No gross abnormalities noted Tricuspid Valve No gross abnormalities noted Pulmonic Valve Pulmonic valve not well visualized. Pericardium Normal pericardium without effusion. Aorta Normal ascending aorta dimension. IVC Inferior vena cava not visualized. CONCLUSIONS Normal left ventricular size and systolic function, EF 68%. No regional wall motion abnormalities. Trace mitral valve regurgitation. No gross valvular abnormalities noted Normal cardiac chamber sizes. There is no pericardial effusion. There are no intracardiac masses. Compared to the study from 05/09/2024, there may not be a significant change Dr Li Pappas MD FACC (Electronically Signed) Final Date: 12 August 2024 08:48 S
[2024-08-15 07:40] LABS: Hematocrit 34.9 % (36-47); Hemoglobin 11.60 g/dL (11.27-16.99); Mean Corpuscular HGB Conc 33.2 g/dL (30-55); Mean Corpuscular Hemoglobin 30.9 pg (27-33); Mean Corpuscular Volume 92.8 fl (85-98); Nucleated Red Blood Cells % 0 %; Platelet Count 216 10^3/cmm (157-399); Red Blood Count 3.76 10^6/uL (3.85-5.65); White Blood Count 10.37 10^3/uL (3.29-11.43)
[2024-08-15 07:51] LABS: Alanine Aminotransferase 23 U/L (0-33); Albumin Level 3.9 g/dL (3.5-5.2); Alkaline Phosphatase 72 U/L (35-105); Anion Gap 15.1 (5-19); Aspartate Amino Transferase 20 U/L (0-32); Blood Urea Nitrogen 8 mg/dL (6-20); Calcium 9.6 mg/dL (8.5-10.5); Carbon Dioxide 24 mmol/L (22-29); Chloride 105 mmol/L (98-107); Globulin 2.5 g/dL (1.3-4.6); Glucose 114 mg/dL (65-115); Osmolality Calculated 289 mOsm/kg (285-295); Potassium 4.1 mmol/L (3.5-5.1); Sodium 140 mmol/L (136-145); Total Protein 6.4 g/dL (6.6-8.7)
[2024-08-15] MEDS: aprepitant 130 mg/18 ml SDV IVP (08:48)
[2024-08-15] MEDS: diphenhydrAMINE 50 mg/mL SDV 1mL 25 MG IVP (09:01)
[2024-08-15] MEDS: pertuzumab 420 MG in sodium chloride 0.9% 250 ML 264 MG IV (09:19)
[2024-08-15] MEDS: SODIUM CHLORIDE 0.9% IV (10:43)
[2024-08-15] MEDS: TRASTUZUMAB ANNS IV (10:43)
[2024-08-15] MEDS: DOCEtaxeL 140 MG in sodium chloride 0.9%(non-DEHP) 250 ML 264 MG IV (11:45)
[2024-08-15] MEDS: pegfilgrastim 6 mg/0.6 mL Kit (onpro) SUBCUT (14:10)
[2024-08-15 14:21] VITALS: BP 150/90; PULSE 90; RESP 18; TEMP 36.6; O2SAT 99
== END 2024-08-15 23:59 | disposition home or self-care (01) ==
PROVIDERS: PCP Nurse Practitioner Family; Visit Provider Internal Medicine
DX: Z53.9 Procedure and treatment not carried out, unspecified reason; Z51.11 Encounter for antineoplastic chemotherapy; Z51.12 Encounter for antineoplastic immunotherapy; C50.412 Malignant neoplasm of upper-outer quadrant of left female breast; Z17.1 Estrogen receptor negative status [ER-]; Z79.899 Other long term (current) drug therapy
CPT/HCPCS: 80053; 83615; 85025; 93306; 96375; 96377; 96413; 96417; J0185; J1100; J1200; J2469; J2506; J3490; J7040; J7050; J9045; J9171; J9306; J9999; Q5117

== ENCOUNTER 2024-09-05 07:19 | Oncology outpatient (recurring) (ONCR) | payer OTHER, SELFPAY ==
[2024-08-22 13:12] LABS: Hematocrit 35.2 % (36-47); Hemoglobin 11.50 g/dL (11.27-16.99); Mean Corpuscular HGB Conc 32.7 g/dL (30-55); Mean Corpuscular Hemoglobin 30.1 pg (27-33); Mean Corpuscular Volume 92.1 fl (85-98); Nucleated Red Blood Cells % 0 %; Platelet Count 160 10^3/cmm (157-399); Red Blood Count 3.82 10^6/uL (3.85-5.65); White Blood Count 6.41 10^3/uL (3.29-11.43)
[2024-08-22 13:28] LABS: Alanine Aminotransferase 34 U/L (0-33); Albumin Level 3.9 g/dL (3.5-5.2); Alkaline Phosphatase 83 U/L (35-105); Anion Gap 14.9 (5-19); Aspartate Amino Transferase 20 U/L (0-32); Blood Urea Nitrogen 14 mg/dL (6-20); Calcium 9.1 mg/dL (8.5-10.5); Carbon Dioxide 24 mmol/L (22-29); Chloride 101 mmol/L (98-107); Creatinine Clr Calc Pharmacy 97.1219; Globulin 2.2 g/dL (1.3-4.6); Glucose 113 mg/dL (65-115); Magnesium 1.9 mg/dL (1.7-2.3); Osmolality Calculated 283 mOsm/kg (285-295); Potassium 3.9 mmol/L (3.5-5.1); Sodium 136 mmol/L (136-145); Total Protein 6.1 g/dL (6.6-8.7)
[2024-08-22 13:33] LABS: Slide Review Slide Review Perform
[2024-09-05 08:02] LABS: Hematocrit 34.5 % (36-47); Hemoglobin 11.50 g/dL (11.27-16.99); Mean Corpuscular HGB Conc 33.3 g/dL (30-55); Mean Corpuscular Hemoglobin 31.3 pg (27-33); Mean Corpuscular Volume 94.0 fl (85-98); Nucleated Red Blood Cells % 0 %; Platelet Count 131 10^3/cmm (157-399); Red Blood Count 3.67 10^6/uL (3.85-5.65); White Blood Count 10.68 10^3/uL (3.29-11.43)
[2024-09-05 08:23] LABS: Alanine Aminotransferase 20 U/L (0-33); Albumin Level 4.1 g/dL (3.5-5.2); Alkaline Phosphatase 70 U/L (35-105); Anion Gap 14.9 (5-19); Aspartate Amino Transferase 18 U/L (0-32); Blood Urea Nitrogen 7 mg/dL (6-20); Calcium 9.4 mg/dL (8.5-10.5); Carbon Dioxide 23 mmol/L (22-29); Chloride 107 mmol/L (98-107); Creatinine Clr Calc Pharmacy 117.2788; Globulin 2.1 g/dL (1.3-4.6); Glucose 129 mg/dL (65-115); Osmolality Calculated 292 mOsm/kg (285-295); Potassium 3.9 mmol/L (3.5-5.1); Sodium 141 mmol/L (136-145); Total Protein 6.2 g/dL (6.6-8.7)
[2024-09-05] MEDS: diphenhydrAMINE 50 mg/mL SDV 1mL 25 MG IVP (10:09)
--- NOTE | 2024-09-05 10:45 | USCV_ITS ---
Tanya Richter Age: 53 Gender: F : 1970 Exam Date: 09/05/2024 09:38 Ordering Phys: Eva Chowdhury APRN Technologist: MARISSA Exam Location: [facility] [place] Indication: LLE Edema HISTORY: Lower extremity edema. PROCEDURES: Venous duplex imaging was performed in only the left lower extremity. The following venous structures were evaluated: common femoral vein, profunda vein, proximal portion of the greater saphenous vein, superficial femoral vein, and the popliteal vein. In addition, the posterior tibial and peroneal trunk were evaluated. Serial compression, augmentation maneuvers, and spectral Doppler flow evaluation were performed. FINDINGS: No evidence of DVT seen in any vessel visualized at this time. CONCLUSIONS No evidence of left lower extremity DVT. Marin Grey MD (Electronically Signed) Final Date: 05 September 2024 09:51 S
[2024-09-05] MEDS: pertuzumab 420 MG in sodium chloride 0.9% 250 ML 264 MG IV (11:03)
[2024-09-05] MEDS: TRASTUZUMAB ANNS IV (11:59)
[2024-09-05] MEDS: SODIUM CHLORIDE 0.9% IV (11:59)
[2024-09-05] MEDS: [UNRECOGNIZED DRUG - REMARK] 265 MG IV (12:36)
[2024-09-05] MEDS: pegfilgrastim 6 mg/0.6 mL Kit (onpro) SUBCUT (14:47)
== END 2024-09-05 23:59 | disposition home or self-care (01) ==
PROVIDERS: Internal Medicine; PCP Nurse Practitioner Family; Visit Provider Nurse Practitioner Family
DX: Z51.11 Encounter for antineoplastic chemotherapy (principal); Z51.12 Encounter for antineoplastic immunotherapy; C50.412 Malignant neoplasm of upper-outer quadrant of left female breast; Z17.1 Estrogen receptor negative status [ER-]; Z78.0 Asymptomatic menopausal state; E66.9 Obesity, unspecified; R74.8 Abnormal levels of other serum enzymes
CPT/HCPCS: 36591; 80053; 83735; 85025; 93971; 96367; 96372; 96375; 96377; 96413; 96417; J1100; J1200; J1453; J2469; J2506; J3490; J7040; J7050; J9045; J9171; J9306; J9999; Q5117

== ENCOUNTER 2024-09-26 07:30 | Oncology outpatient (recurring) (ONCR) | payer OTHER, SELFPAY ==
[2024-09-12 12:39] LABS: Hematocrit 35.2 % (36-47); Hemoglobin 11.60 g/dL (11.27-16.99); Mean Corpuscular HGB Conc 33.0 g/dL (30-55); Mean Corpuscular Hemoglobin 31.5 pg (27-33); Mean Corpuscular Volume 95.7 fl (85-98); Nucleated Red Blood Cells % 0 %; Platelet Count 150 10^3/cmm (157-399); Red Blood Count 3.68 10^6/uL (3.85-5.65); White Blood Count 5.16 10^3/uL (3.29-11.43)
[2024-09-12 12:57] LABS: Alanine Aminotransferase 17 U/L (0-33); Albumin Level 3.9 g/dL (3.5-5.2); Alkaline Phosphatase 73 U/L (35-105); Anion Gap 14.0 (5-19); Aspartate Amino Transferase 16 U/L (0-32); Blood Urea Nitrogen 9 mg/dL (6-20); Calcium 9.1 mg/dL (8.5-10.5); Carbon Dioxide 25 mmol/L (22-29); Chloride 101 mmol/L (98-107); Creatinine Clr Calc Pharmacy 97.2443; Globulin 2.3 g/dL (1.3-4.6); Glucose 129 mg/dL (65-115); Osmolality Calculated 282 mOsm/kg (285-295); Potassium 4.0 mmol/L (3.5-5.1); Sodium 136 mmol/L (136-145); Total Protein 6.2 g/dL (6.6-8.7)
[2024-09-12 13:43] LABS: Slide Review Slide Review Perform
[2024-09-26 07:35] LABS: Hematocrit 35.6 % (36-47); Hemoglobin 11.80 g/dL (11.27-16.99); Mean Corpuscular HGB Conc 33.1 g/dL (30-55); Mean Corpuscular Hemoglobin 31.8 pg (27-33); Mean Corpuscular Volume 96.0 fl (85-98); Nucleated Red Blood Cells % 0 %; Platelet Count 199 10^3/cmm (157-399); Red Blood Count 3.71 10^6/uL (3.85-5.65); White Blood Count 13.60 10^3/uL (3.29-11.43)
[2024-09-26 07:59] LABS: Alanine Aminotransferase 19 U/L (0-33); Albumin Level 4.1 g/dL (3.5-5.2); Alkaline Phosphatase 67 U/L (35-105); Anion Gap 16.4 (5-19); Aspartate Amino Transferase 18 U/L (0-32); Blood Urea Nitrogen 11 mg/dL (6-20); Calcium 9.6 mg/dL (8.5-10.5); Carbon Dioxide 23 mmol/L (22-29); Chloride 105 mmol/L (98-107); Creatinine Clr Calc Pharmacy 136.8872; Globulin 2.3 g/dL (1.3-4.6); Glucose 150 mg/dL (65-115); Osmolality Calculated 292 mOsm/kg (285-295); Potassium 4.4 mmol/L (3.5-5.1); Sodium 140 mmol/L (136-145); Total Protein 6.4 g/dL (6.6-8.7)
[2024-09-26] MEDS: diphenhydrAMINE 50 mg/mL SDV 1mL 25 MG IVP (10:24)
[2024-09-26] MEDS: pertuzumab 420 MG in sodium chloride 0.9% 250 ML 264 MG IV (11:51)
[2024-09-26] MEDS: SODIUM CHLORIDE 0.9% IV ×2 (12:55→14:45)
[2024-09-26] MEDS: TRASTUZUMAB ANNS IV (12:55)
[2024-09-26] MEDS: [UNRECOGNIZED DRUG - REMARK] 261 MG IV (13:36)
[2024-09-26] MEDS: CARBOPLATIN IV (14:45)
[2024-09-26] MEDS: pegfilgrastim 6 mg/0.6 mL Kit (onpro) SUBCUT (14:48)
[2024-09-26 16:20] VITALS: BP 124/76; PULSE 78; RESP 17; TEMP 36.6; O2SAT 98
== END 2024-09-26 23:59 | disposition home or self-care (01) ==
PROVIDERS: Internal Medicine; PCP Nurse Practitioner Family; Visit Provider Nurse Practitioner
DX: Z51.11 Encounter for antineoplastic chemotherapy; Z51.12 Encounter for antineoplastic immunotherapy; C50.412 Malignant neoplasm of upper-outer quadrant of left female breast; Z79.52 Long term (current) use of systemic steroids; Z79.899 Other long term (current) drug therapy; Z53.9 Procedure and treatment not carried out, unspecified reason
CPT/HCPCS: 36415; 80053; 85025; 96367; 96375; 96377; 96413; 96417; J1100; J1200; J1453; J2469; J2506; J3490; J7040; J7050; J9045; J9171; J9306; J9999; Q5117

== ENCOUNTER 2024-10-24 07:58 | Oncology outpatient (recurring) (ONCR) | payer OTHER, SELFPAY ==
[2024-10-24 08:29] LABS: Hematocrit 35.2 % (36-47); Hemoglobin 11.60 g/dL (11.27-16.99); Mean Corpuscular HGB Conc 33.0 g/dL (30-55); Mean Corpuscular Hemoglobin 32.5 pg (27-33); Mean Corpuscular Volume 98.6 fl (85-98); Nucleated Red Blood Cells % 0 %; Platelet Count 209 10^3/cmm (157-399); Red Blood Count 3.57 10^6/uL (3.85-5.65); White Blood Count 4.60 10^3/uL (3.29-11.43)
[2024-10-24 08:47] LABS: Alanine Aminotransferase 20 U/L (0-33); Albumin Level 3.6 g/dL (3.5-5.2); Alkaline Phosphatase 56 U/L (35-105); Anion Gap 15.3 (5-19); Aspartate Amino Transferase 24 U/L (0-32); Blood Urea Nitrogen 9 mg/dL (6-20); Calcium 9.0 mg/dL (8.5-10.5); Carbon Dioxide 24 mmol/L (22-29); Chloride 106 mmol/L (98-107); Globulin 2.4 g/dL (1.3-4.6); Glucose 104 mg/dL (65-115); Osmolality Calculated 291 mOsm/kg (285-295); Potassium 4.3 mmol/L (3.5-5.1); Sodium 141 mmol/L (136-145); Total Protein 6.0 g/dL (6.6-8.7)
[2024-10-24] MEDS: pertuzumab 420 MG in sodium chloride 0.9% 250 ML 264 MG IV (10:07)
[2024-10-24] MEDS: TRASTUZUMAB ANNS IV (11:24)
[2024-10-24] MEDS: SODIUM CHLORIDE 0.9% IV (11:24)
== END 2024-10-24 23:59 | disposition home or self-care (01) ==
PROVIDERS: PCP Nurse Practitioner Family; Visit Provider Nurse Practitioner
DX: Z51.12 Encounter for antineoplastic immunotherapy (principal); C50.412 Malignant neoplasm of upper-outer quadrant of left female breast; Z17.1 Estrogen receptor negative status [ER-]
CPT/HCPCS: 80053; 85025; 96413; 96417; J7050; J9306; J9999; Q5117

== ENCOUNTER 2024-11-14 08:00 | Oncology outpatient (recurring) (ONCR) | payer OTHER, SELFPAY ==
--- NOTE | 2024-11-12 09:07 | USCV_ITS ---
Tanya Richter Age: 54 Gender: F : 1970 Exam Date: 11/12/2024 09:29 Ordering Phys: Mare Wall DO Technologist: Exam Location: [facility] [place] Indication: high risk meds BP: 130 / 80 HR: Rhythm: Sinus Technical Quality: Adequate MEASUREMENTS (Male / Female) Normal Values 2D ECHO LV Diastolic Diameter PLAX 4.0 cm 4.2 - 5.9 / 3.9 - 5.3 cm IVS Diastolic Thickness 1.3 cm 0.6 - 1.0 / 0.6 - 0.9 cm IVS Systolic Thickness 1.9 cm LVPW Diastolic Thickness 1.3 cm 0.6 - 1.0 / 0.6 - 0.9 cm LVPW Systolic Thickness 1.4 cm LVOT Diameter 2.0 cm LV Ejection Fraction 2D Teich 67.8 % LV Ejection Fraction MOD 4C 67.4 % LV Ejection Fraction MOD 2C 62.2 % LV Ejection Fraction 2C AL 61.0 % LA Diameter 3.0 cm RA Systolic Volume 4C AL 23.1 ml RA Systolic Volume 4C MOD 22.0 ml LA Sys Volume AL 47.1 cm cubed LA Sys Volume Index AL 23.8 cm cubed/m squared Aorta at Sinotubular Diameter 2.4 cm FINDINGS Left Ventricle Normal left ventricular size, systolic function and wall thickness, with no regional wall motion abnormalities. Left ventricular ejection fraction is estimated at 60 %. Right Ventricle Right Atrium Left Atrium IA Septum Mitral Valve Aortic Valve Tricuspid Valve Pulmonic Valve Pericardium Aorta IVC CONCLUSIONS Limited Echo Normal left ventricular size, systolic function and wall thickness, with no regional wall motion abnormalities. Left ventricular ejection fraction is estimated at 60 %. There is no pericardial effusion. Nikky Nix MD (Electronically Signed) Final Date: 12 November 2024 14:02 S
[2024-11-14 08:25] LABS: Hematocrit 36.1 % (36-47); Hemoglobin 11.90 g/dL (11.27-16.99); Mean Corpuscular HGB Conc 33.0 g/dL (30-55); Mean Corpuscular Hemoglobin 30.7 pg (27-33); Mean Corpuscular Volume 93.0 fl (85-98); Nucleated Red Blood Cells % 0 %; Platelet Count 227 10^3/cmm (157-399); Red Blood Count 3.88 10^6/uL (3.85-5.65); White Blood Count 5.91 10^3/uL (3.29-11.43)
[2024-11-14 08:39] LABS: Alanine Aminotransferase 17 U/L (0-33); Albumin Level 3.8 g/dL (3.5-5.2); Alkaline Phosphatase 62 U/L (35-105); Anion Gap 12.2 (5-19); Aspartate Amino Transferase 22 U/L (0-32); Blood Urea Nitrogen 10 mg/dL (6-20); Calcium 9.6 mg/dL (8.5-10.5); Carbon Dioxide 25 mmol/L (22-29); Chloride 108 mmol/L (98-107); Creatinine Clr Calc Pharmacy 98.3089; Globulin 2.7 g/dL (1.3-4.6); Glucose 102 mg/dL (65-115); Osmolality Calculated 291 mOsm/kg (285-295); Potassium 4.2 mmol/L (3.5-5.1); Sodium 141 mmol/L (136-145); Total Protein 6.5 g/dL (6.6-8.7)
[2024-11-14] MEDS: pertuzumab-trastuzumab-hy-zzxf (60 mg-60mg-2000 units/mL) 10mL 600 MG SUBCUT (10:46)
[2024-11-14 11:21] VITALS: BP 118/77; PULSE 87; RESP 16; TEMP 36.2; O2SAT 96
== END 2024-12-06 23:59 | disposition home or self-care (01) ==
PROVIDERS: Internal Medicine; PCP Nurse Practitioner Family; Visit Provider Nurse Practitioner
DX: Z53.9 Procedure and treatment not carried out, unspecified reason (principal); Z51.12 Encounter for antineoplastic immunotherapy; C50.919 Malignant neoplasm of unspecified site of unspecified female breast; Z79.899 Other long term (current) drug therapy
CPT/HCPCS: 80053; 85025; 93308; 96372; J9316; J9999

== ENCOUNTER 2024-11-18 10:34 | Outpatient (CLI) | payer OTHER, SELFPAY ==
--- NOTE | 2024-11-18 10:45 | MM_ITS ---
WS: [id number] DIAGNOSTIC BILATERAL DIGITAL BREAST TOMOSYNTHESIS MAMMOGRAPHY WITH CAD HISTORY: breast cancer, LEFT breast biopsy 04/19/2024. Chemotherapy only. No surgery or radiation. COMPARISON: 04/04/2024, breast ultrasound 04/04/2024 and biopsy 04/19/2024. PET/CT 05/24/2024 TECHNIQUE: Bilateral craniocaudad, mediolateral oblique, and mediolateral views are submitted with tomosynthesis and SM. Spot compression LEFT CC and MLO. Computer aided detection utilized. Breast composition: There are scattered areas of fibroglandular density. There is diffuse soft tissue thickening involving the LEFT breast. Biopsy marker is noted in the upper outer quadrant of the LEFT breast at the area of the previously seen spiculated mass with pleomorphic calcifications. The overall size of the mass has decreased. Very minimal residual increased density remaining. There is no well-formed mass to measure. There is still scattered calcifications and very slight increased density. The biopsy clip remains appropriately positioned. No new mass. RIGHT breast is negative. MM/MM diag BI tomosynthesis [id number] IMPRESSION: BI-RADS: 6 - Known Biopsy - Proven Malignancy. FOLLOW UP: See Report 1. Previously described mass in the upper outer quadrant of the LEFT breast at a middle depth is being treated with chemotherapy. Mass is significantly decre ased in size in the lumen for calcifications are also decreasing. There is no d iscrete residual mass for biopsy measurement. 2. Diffuse LEFT breast skin thickening. Skin thickening was also present on prior study and may indicate inflammatory breast cancer. 3. Follow-up as indicated by oncology.
== END 2024-11-18 10:35 | disposition home or self-care (01) ==
LOC: RAD 10:35
PROVIDERS: PCP Nurse Practitioner Family; Visit Provider Internal Medicine
DX: C50.412 Malignant neoplasm of upper-outer quadrant of left female breast (principal); Z17.1 Estrogen receptor negative status [ER-]; R92.323 Mammographic fibroglandular density, bilateral breasts; R92.1 Mammographic calcification found on diagnostic imaging of breast
CPT/HCPCS: 77062; G0279

== ENCOUNTER 2024-12-03 05:44 | Outpatient (CLI) | payer OTHER, SELFPAY ==
[2024-12-03] VITALS (11 sets, daily range): BP systolic 131–147; BP diastolic 88–93; PULSE 97–108; RESP 12–18; TEMP 36.1–37.4; O2SAT 94–100; BMI 34.7
--- NOTE | 2024-12-03 07:17 | W.PM.OPSUD ---
Surgery/Procedure H&P Update DATE OF PROCEDURE: December 03, 2024 DATE H&P PERFORMED: 11/20/24 H&P UPDATE INFORMATION: I have reviewed H&P completed within last 30 days, I have examined patient prior to procedure, No changes to prior documentation, H&P is in [facility] EMR on date indicated and Risks and benefits of the procedure reviewed CHANGES TO PREVIOUS DOCUMENTATION: We have discussed all risks and benefits of needle localized lumpectomy of the left breast with sentinel node biopsy. Patient shows understanding wishes to proceed PLANNED PROCEDURE: Operation Date: 12/03/24 11:30 Proposed Procedures p LEFT Breast Lumpectomy w/ Needle Localization [id number](Left) - Collins Hernandez MD s Sentinal Lymph Node Biopsy(Left) - Collins Hernandez MD s Lymphoscintigraphy W/ Frozen Section(Left) - Collins Hernandez MD
--- NOTE | 2024-12-03 10:30 | SUR.PREOP ---
PAtient has been to nuc med appointment. Patient checked into pre op at 1000. Patient taken to ultrasound dept for needle localization at 1028.
[2024-12-03] MEDS: isosulfan blue 10 mg/mL SDV 5mL SUBCUT (12:12)
[2024-12-03] MEDS: BUPivacaine 0.25% INJ 30 mL INJECTION (13:30)
[2024-12-03] MEDS: lidocaine-epi 1% PF 1:200,000 30 mL SDV INJECTION (13:30)
--- NOTE | 2024-12-03 14:10 | P.OP_ITS ---
Operative Report Date of procedure: December 03, 2024 Pre-op diagnosis: Left breast cancer Post-op diagnosis: Same Post-op findings: There was a needle localized lesion on the left breast, x-ray confirmed presence of the clip and wire. [place] node in the left axilla was noted and marked by radiotracer a blue dye, and node was found on a clinical basis and negative for metastasis Procedure done: Needle localized lumpectomy of the left breast, sentinel lymph node biopsy of the left axilla Specimens removed/disposition: Left axillary sentinel node for frozen section, left breast mass marked short superior and long lateral Surgeon: Collins Hernandez MD Financial Quantitative Analyst: DAYANARA OR Staff Estimated blood loss: 20 Complications: None apparent Brief History: This is a 54-year-old female with history of left breast cancer who underwent neoadjuvant chemotherapy, has not finalized her cycles presents to my office for surgical management. We discussed the different surgical possibilities and the end the patient has decided to undergo a lumpectomy with a sentinel node biopsy. Procedure: Patient came early in the morning, was taken to nuclear medicine where radiotracer was administered, after 3 hours of localization there was no lymph node that was able to be identified in the axilla. She then went to radiology for ultrasound needle localization. Patient was brought into the OR, she was p laced in a supine position. General anesthesia was given. 2 mL of blue dye were injected in the left breast and the breast was massaged for about 5 minutes. The left breast and axilla were prepped and draped in the usual sterile fashion. A timeout was conducted. I used the radiotracer probe to try identify the node in the axilla but unfortunately there were no evidence of radiotracer in the axilla, I then clinically identified the lower edge of the axillary fossa and made a 4 cm incision, the incision was Explained until the axillary fascia was noted and the axillary fascia was sharply opened. There was no raise of the blue dye, I then used appropriate again and just identified a minimal amount of radiotracer at this level. The node was able to be then defied on a clinical basis, I elevated note with an Allis clamp and then dissected it from the surrounding tissue using a tonsil clamp. The node was sent to pathology, frozen section was done and was negative for evidence of trevor gnancy. Hemostasis was achieved. The wound was irrigated. Josefa was placed on the wound to prevent further bleeding. The wound was closed in layers using #3-0 Vicryl for axillary fascia and subcutaneous tissue and #4 Monocryl for the skin and Dermabond was applied. We then placed our attention to the breast, different set of instruments and gloves were used. I made a 5 cm periareolar incision on the outer upper quadrant, the incision was deepened until the superficial breast fascia was opened. I then created flaps in the superior medial and lateral direction, I then proceeded to dissect laterally until the wire was identified. The wire was internalized to the wound I used towel clamps to elevate the specimen making sure to surround the wire. With electrocautery I circumferentially dissected the specimen surrounding the wire making sure of including the tip and leaving an adequate tissue margin. The specimen was completely excised and marked short superior and long lateral with 2-0 silk. The specimen was sent to radiology and x-ray showed evidence of good positioning of the clip and the wire inside of the specimen. The wound was irrigated. Hemostasis was achieved. I then proceeded to close the incision using oncoplastic principles, I used #2-0 Vicryl for the deep tissue, #3-0 Vicryl for the superficial breast fascia and #4 Monocryl for the skin. Local anesthesia was infiltrated in the wounds. Steri-Strips were applied. At the end of the procedure all counts were correct, the patient tolerated well the procedure was transferred to the PACU in stable condition
[2024-12-03] MEDS: oxyCODONE 5 mg IR Tab/Cap PO (15:06)
== END 2024-12-03 15:59 | disposition home or self-care (01) ==
PROVIDERS: PCP Nurse Practitioner Family; Visit Provider Surgery
PROC: (CPT 19120; principal; 2024-12-03 11:30)
PROC: (CPT 78195; 2024-12-03 11:30)
DX: C50.412 Malignant neoplasm of upper-outer quadrant of left female breast (principal); Z17.1 Estrogen receptor negative status [ER-]; Z80.3 Family history of malignant neoplasm of breast
CPT/HCPCS: 19285; 78195; 88307; 88331; A9541; J1100; J2250; J2371; J2405; J2704; J3010; J3490; J7030; J9999; Q9968

== ENCOUNTER 2024-12-12 07:18 | Oncology outpatient (recurring) (ONCR) | payer OTHER, SELFPAY ==
[2024-12-12 07:32] LABS: Hematocrit 36.9 % (36-47); Hemoglobin 12.10 g/dL (11.27-16.99); Mean Corpuscular HGB Conc 32.8 g/dL (30-55); Mean Corpuscular Hemoglobin 29.4 pg (27-33); Mean Corpuscular Volume 89.6 fl (85-98); Nucleated Red Blood Cells % 0 %; Platelet Count 225 10^3/cmm (157-399); Red Blood Count 4.12 10^6/uL (3.85-5.65); White Blood Count 6.54 10^3/uL (3.29-11.43)
[2024-12-12 08:04] LABS: Alanine Aminotransferase 20 U/L (0-33); Albumin Level 4.0 g/dL (3.5-5.2); Alkaline Phosphatase 69 U/L (35-105); Anion Gap 15.2 (5-19); Aspartate Amino Transferase 21 U/L (0-32); Blood Urea Nitrogen 15 mg/dL (6-20); CA 15-3 20.0 U/mL (0-25); Calcium 9.4 mg/dL (8.5-10.5); Carbon Dioxide 23 mmol/L (22-29); Chloride 105 mmol/L (98-107); Creatinine Clr Calc Pharmacy 98.9246; Globulin 2.5 g/dL (1.3-4.6); Glucose 97 mg/dL (65-115); Osmolality Calculated 289 mOsm/kg (285-295); Potassium 4.2 mmol/L (3.5-5.1); Sodium 139 mmol/L (136-145); Total Protein 6.5 g/dL (6.6-8.7)
[2024-12-12] MEDS: pertuzumab 420 MG in sodium chloride 0.9% 250 ML 264 MG IV (10:44)
[2024-12-12] MEDS: TRASTUZUMAB ANNS IV (11:56)
[2024-12-12] MEDS: SODIUM CHLORIDE 0.9% IV (11:56)
[2024-12-12 13:04] VITALS: BP 115/90; PULSE 67; RESP 16; TEMP 36.6; O2SAT 99
[2024-12-12 14:48] LABS: Thyroid Stimulating Hormone 1.50 uIU/mL (0.27-4.20)
[2024-12-12 18:06] LABS: Vitamin B12 671 pg/mL (232-1245)
== END 2024-12-12 23:59 | disposition home or self-care (01) ==
PROVIDERS: PCP Nurse Practitioner Family; Visit Provider Nurse Practitioner
DX: Z53.9 Procedure and treatment not carried out, unspecified reason; Z51.12 Encounter for antineoplastic immunotherapy; C50.919 Malignant neoplasm of unspecified site of unspecified female breast; R53.83 Other fatigue
CPT/HCPCS: 80053; 82607; 84443; 85025; 86300; 96413; 96417; J7050; J9306; J9999; Q5117

== ENCOUNTER 2025-02-05 08:16 | Oncology outpatient (recurring) (ONCR) | payer OTHER, SELFPAY ==
[2025-01-09 08:34] LABS: Hematocrit 39.0 % (36-47); Hemoglobin 13.00 g/dL (11.27-16.99); Mean Corpuscular HGB Conc 33.3 g/dL (30-55); Mean Corpuscular Hemoglobin 28.2 pg (27-33); Mean Corpuscular Volume 84.6 fl (85-98); Nucleated Red Blood Cells % 0 %; Platelet Count 249 10^3/cmm (157-399); Red Blood Count 4.61 10^6/uL (3.85-5.65); White Blood Count 7.76 10^3/uL (3.29-11.43)
[2025-01-09 08:56] LABS: Alanine Aminotransferase 22 U/L (0-33); Albumin Level 4.2 g/dL (3.5-5.2); Alkaline Phosphatase 80 U/L (35-105); Anion Gap 17.2 (5-19); Aspartate Amino Transferase 23 U/L (0-32); Blood Urea Nitrogen 15 mg/dL (6-20); Calcium 9.9 mg/dL (8.5-10.5); Carbon Dioxide 24 mmol/L (22-29); Chloride 102 mmol/L (98-107); Globulin 2.7 g/dL (1.3-4.6); Glucose 110 mg/dL (65-115); Osmolality Calculated 289 mOsm/kg (285-295); Potassium 4.2 mmol/L (3.5-5.1); Sodium 139 mmol/L (136-145); Total Protein 6.9 g/dL (6.6-8.7)
--- NOTE | 2025-01-09 10:55 | N.ONRAD NP_ITS ---
Radiation Oncology New Patient Visit Patient: Tanya Richter MR#: [id number] : 1970 Age: 54 Sex: Female Dictated by: Dr. Amparo Orantes Date of Service: 01/09/2025 Referring Physician(s) : Dr. Enriquez Diagnosis: Stage IIa, [id number] Left sided breast cancer, ERPR-, HER2+ Radiotherapy to date: Summary > No prior radiation therapy. Chief Complaint / History of Present Illness: Pt is a 54 yo female who found a mass in breast in spring 2024. She was found to have a invasive breast cancer with a 4 cm mass clinically. She had shoddy axillary nodes on PET but not clinically felt. She has under gone neoadjuvant chemo TCHP after which she had breast conserving surgery. The pathology report showed a CR. She is here today to discuss the radiation portion of her treatment. She will be off CT for a month due to peripheral neuropathy. Current Medications: yridoxine (vitamin B6) (Vitamin B-6) 100 mg PO DAILY [Vitamin D3 1 tab PO DAILY] Allergies: amoxicillin Allergy Medical History: No history of collagen vascular disease. No previous radiation therapy. Surgical History: Family History: Family/Other Breast cancer Aunt on moms side Social History: Smoking and tobacco/nicotine status: never used tobacco/nicotine Second hand smoke exposure: Yes (during childhood) Current Complaints / Review of Systems: . Vital Signs: Performed on 01/09/2025 9:59 AM BMI - 35.872 kg/m2 (high), Height - 63 in, Weight - 202.5 lbs, Temperature - 97 f, Pulse - 105 /min (high), Respiration - 16 /min, O2 Sat - 97 %, Pain - 2, Fatigue - 0 and BP - 122/ 79 mm(hg). Physical Exam: General: Pt is accompanied by her HEENT: NC/AT, PERRL, EOMI, sclera clear. Breast: the incisions are well healed with no signs of infection or inflammation Pulm: respiratory rate is regular and non labored CV: RRR Abd; mildly protuberant in an android pattern Ext: no lymphedema noted Neuro: Alert and oriented, speech and gait intact Performance Status: 100 Pathology: Lab: Imaging: See HPI Impression: cStage IIa s/p neoadj CT with a CR Plan: I reviewed the simulation process. We discussed the risks and side effects both acute and moth exterminator. I reviewed skin care. We discussed a three week course of treatment. All her questions were answered. She will return Monday for sim and start shortly thereafter. Signed by: 01/09/2025 10:53:27 AM <<Signature on File>> Time spent with patient:40 CPT Code: CPT Code:
--- NOTE | 2025-01-21 09:08 | ONCRAD TMN_ITS ---
Radiation Oncology Weekly Treatment Management Patient: Neelam Souza MR#: [id number] : 1970> Attending Physician: Hilario Reyna Date of Service: 01/21/2025 Referring Physician(s) : Dr. Enriquez Diagnosis: C50.412 - Malignant neoplasm of upper-outer quadrant of left female breast, Diagnosed 01/09/2025 (Active) Radiotherapy to date: Course: Left breast, Treatment Site: Lt Breast Ca, Ref. ID: Breast_L, Energy: 6X, Dose/Fx (cGy): 266, #Fx: 5 / 16, Dose Correction (cGy): 0, Total Dose Delivered (cGy): 1,330, Start Date: 01/15/2025, Elapsed Days: 6 Reason for visit: The patient is being seen today as part of their regularly scheduled weekly on treatment visits to assess for acute toxicities from radiotherapy. Review of Systems: Patient being treated in 16 fractions after neoadjuvant chemotherapy and surgery. She is also began treated with Herceptin adjuvantly but is on hold until 02/13/2025. PET scan showed shotty axillary lymph nodes but none identified clinically. Patient being treated with tangents only. Vital Signs: Performed on 01/21/2025 8:28 AM BMI - 35.748 kg/m2 (high), Height - 63 in, Weight - 201.8 lbs, Temperature - 98.2 f, Pulse - 89 /min, Respiration - 18 /min, O2 Sat - 94 % (low), Pain - 0, Fatigue - 0 and BP - 123/ 84 mm(hg). Physical Exam: AAOx3. Skin intact Imaging: Radiation therapy imaging related to accurate target localization (i.e. KV, MV and CBCT) was reviewed. Appropriate changes, if any, were made to ensure treatment accuracy. Plan: Continue XRT. Utilize creams liberally. Signed by: Hilario Reyna 01/21/2025 9:07:06 AM
--- NOTE | 2025-01-28 08:48 | ONCRAD TMN_ITS ---
Radiation Oncology Weekly Treatment Management Patient: Tanya Richter MR#: [id number] : 1970 Attending Physician: Hilario Reyna Date of Service: 01/28/2025 Referring Physician(s) : Dr. Enriquez Diagnosis: C50.412 - Malignant neoplasm of upper-outer quadrant of left female breast, Diagnosed 01/09/2025 (Active) Radiotherapy to date: Course: Left breast, Treatment Site: Lt Breast Ca, Ref. ID: Breast_L, Energy: 6X, Dose/Fx (cGy): 266, #Fx: , Dose Correction (cGy): 0, Total Dose Delivered (cGy): 2,660, Start Date: 01/15/2025, Elapsed Days: 13 Reason for visit: The patient is being seen today as part of their regularly scheduled weekly on treatment visits to assess for acute toxicities from radiotherapy. Review of Systems: No voiced complaints. Utilizing creams daily. Mild erythema without tenderness. Vital Signs: Performed on 01/28/2025 7:47 AM BMI - 35.783 kg/m2 (high), Height - 63 in, Weight - 202.0 lbs, Temperature - 96.8 f, Pulse - 98 /min, Respiration - 17 /min, O2 Sat - 98 %, Pain - 0, Fatigue - 0 and BP - 113/ 80 mm(hg). Physical Exam: AAOx3. Mild skin erythema superiorly Imaging: Radiation therapy imaging related to accurate target localization (i.e. KV, MV and CBCT) was reviewed. Appropriate changes, if any, were made to ensure treatment accuracy. Plan: Continue XRT Continue creams daily Signed by: Hilario Reyna 01/28/2025 8:46:57 AM
--- NOTE | 2025-02-04 09:01 | ONCRAD TMN_ITS ---
Radiation Oncology Weekly Treatment Management Patient: Tanya Richter MR#: [id number] : 1970 Attending Physician: Hilario Reyna Date of Service: 02/04/2025 Referring Physician(s) : Dr Enriquez Diagnosis: C50.412 - Malignant neoplasm of upper-outer quadrant of left female breast, Diagnosed 01/09/2025 (Active) Radiotherapy to date: Course: Left breast, Treatment Site: Lt Breast Ca, Ref. ID: Breast_L, Energy: 6X, Dose/Fx (cGy): 266, #Fx: , Dose Correction (cGy): 0, Total Dose Delivered (cGy): 3,192, Start Date: 01/15/2025, End Date: 02/03/2025, Elapsed Days: 19 Reason for visit: The patient is being seen today as part of their regularly scheduled weekly on treatment visits to assess for acute toxicities from radiotherapy. Review of Systems: No voiced complaints. No down 3 pounds since last visit. Utilizing creams daily. Mild erythema without tenderness in the portal. Vital Signs: Performed on 02/04/2025 8:31 AM BMI - 35.358 kg/m2 (high), Height - 63 in, Weight - 199.6 lbs, Temperature - 97.6 f, Pulse - 90 /min, Respiration - 16 /min, O2 Sat - 98 %, Pain - 0, Fatigue - 0 and BP - 129/ 73 mm(hg). Physical Exam: AO x 3. Skin intact. Mild erythema in the treatment portal. Imaging: Radiation therapy imaging related to accurate target localization (i.e. KV, MV and CBCT) was reviewed. Appropriate changes, if any, were made to ensure treatment accuracy. Plan: Continue XRT Continue utilization of creams liberally. Signed by: Hilario Reyna 02/04/2025 9:00:29 AM
== END 2025-02-05 23:59 | disposition home or self-care (01) ==
PROVIDERS: Nurse Practitioner; PCP Nurse Practitioner Family; Visit Provider Radiology Radiation Oncology
DX: Z51.0 Encounter for antineoplastic radiation therapy (principal); C50.412 Malignant neoplasm of upper-outer quadrant of left female breast
CPT/HCPCS: 77290; 77295; 77300; 77334; 77336; 77387; 77412; 80053; 85025